=== PATIENT | female | born 1940 | race African-American/Black ===

== ENCOUNTER 2025-06-14 17:22 | Emergency (ER) | payer OTHER ==
[~2025-06-14] VITALS: Ht 170.2 cm; Wt 91.0 kg
[2025-06-14 17:36] VITALS: O2SAT 100
[2025-06-14] MEDS: SODIUM CHLORIDE 0.9% 1,000 ML IV ONE (19:34)
[2025-06-14 20:25] LABS: BASOPHILS % 0.2 % (0.0-2.0); EOSINOPHILS % 1.4 % (0.0-5.0); HEMATOCRIT. 26.3 % (36.0-48.0); HEMOGLOBIN. 8.5 g/dL (12.0-16.0); LYMPHOCYTES % 13.8 % (20.0-50.0); MEAN PLATELET VOLUME 8.0 fl (7.4-10.4); MONOCYTES % 3.8 % (2.0-8.0); NEUTROPHILS % 80.8 % (40.0-76.0); PLATELET 308 x1000/uL (130-400); RED BLOOD CELL COUNT 2.76 mill/uL (4.2-5.4); RED CELL DISTRIBUTION WIDTH 17.0 % (11.6-14.6)
[2025-06-14 20:31] VITALS: TEMP 36.6
[2025-06-14 20:43] LABS: CREATININE 1.4 mg/dL (0.6-1.0); TROPONIN I HIGH SENSITIVITY 5 ng/L (3.0-34); UREA NITROGEN BLOOD 15 mg/dL (9-23)
[2025-06-14 20:45] LABS: ASPARTATE AMINOTRANSFERASE 42 IU/L (<34); BILIRUBIN DIRECT < 0.1 mg/dL (<=3.0); BILIRUBIN TOTAL 0.3 mg/dL (0.1-1.0); PROTEIN TOTAL 6.5 g/dL (6.0-8.3)
[2025-06-14 22:17] VITALS: BP 200/89; PULSE 83; RESP 13; O2SAT 97
== END 2025-06-14 22:31 | disposition home or self-care (01) ==
LOC: ER 17:22
DX: E86.0 Dehydration (principal); I10 Essential (primary) hypertension; Z88.0 Allergy status to penicillin
CPT/HCPCS: 99285; 96360; 71045; 80076; 80048; 85025; 84484; 36415; 93005; J7030